=== PATIENT | female | born 1980 | race American Indian/Alaskan Native ===

== ENCOUNTER 2016-10-24 07:59 | Inpatient (IN) | payer MEDICARE ==
[2016-10-24 08:20] VITALS: BMI 42.9
--- NOTE | 2016-10-24 08:24 | ED PDOC ---
Psych Transfer Clearance - Clearance Statement Clearance Statement: Dr Mcneil reviewed vital signs, lab results and transfer papers. Patient clinically stable for psychiatric admission.
[2016-10-24] MEDS ORDERED: DiphenhydrAMINE 50 mg/ml Inj IM PRN (09:19)
[2016-10-24] MEDS ORDERED: Magnesium Hydroxide Susp 30 ml UD PO PRN (09:19)
[2016-10-24] MEDS ORDERED: Alum-Mag Hydrox-Simethicone Susp (30 mL) PO PRN (09:19)
--- NOTE | 2016-10-24 11:43 | CP.PCM.CON ---
History of Present Illness - History of Present Illness History of Present Illness: 36 yo female with history of DM2 but not taking medication since 3 yrs ago admitted at [facility] because of hearing voices. She was transferred to [facility] for admission to psyche unit Review of Systems - Review of Systems All systems: reviewed and no additional remarkable complaints except (aside from those mentioned above, 12 point system review were negative by me) Past Patient History - Tetanus Immunizations Tetanus Immunization: Unknown - Past Medical History & Family History Pertinent Family History: father had DM2 - Past Social History Smoking Status: Never Smoked Alcohol: None Drugs: Denies - CARDIAC Hx Cardiac Disorders: No - PULMONARY Hx Respiratory Disorders: No - NEUROLOGICAL Hx Neurological Disorder: No - HEENT Hx HEENT Problems: No - RENAL Hx Chronic Kidney Disease: No - ENDOCRINE/METABOLIC Hx Diabetes Mellitus Type 2: Yes (since 2001) - HEMATOLOGICAL/ONCOLOGICAL Hx Human Immunodeficiency Virus (HIV): No - INTEGUMENTARY Hx Cellulitis: Yes - MUSCULOSKELETAL/RHEUMATOLOGICAL Hx Musculoskeletal Disorders: No Hx Falls: No - GASTROINTESTINAL Hx Gastrointestinal Disorders: No - GENITOURINARY/GYNECOLOGICAL Hx Genitourinary Disorders: No - PSYCHIATRIC Hx Anxiety: Yes Hx Schizophrenia: Yes ([id number]) Hx Substance Use: No - SURGICAL HISTORY Hx Surgeries: No Other/Comment: wisdom teeth extracted - ANESTHESIA Hx Anesthesia: Yes Hx Anesthesia Reactions: No Meds Allergies/Adverse Reactions: Allergies Allergy/AdvReac Type Severity Reaction Status Date / Time shellfish derived Allergy Verified 10/23/16 21:35 FRUITY FLAVOR Allergy Intermediate SWELLING Uncoded 02/24/15 12:40 lobster Allergy Uncoded 03/16/15 16:32 - Medications Medications: Current Medications Acetaminophen (Tylenol 325mg Tab) 650 mg PO Q4 PRN PRN Reason: pain Al Hydrox/Mg Hydrox/Simethicone (Maalox Plus 30 Ml) 30 ml PO Q4 PRN PRN Reason: Dyspepsia Diphenhydramine HCl (Benadryl) 50 mg IM Q6 PRN PRN Reason: Extrapyramidal S/S Unable PO Diphenhydramine HCl (Benadryl) 50 mg PO Q6 PRN PRN Reason: Extrapyramidal Symptoms Haloperidol (Haldol) 5 mg PO Q4 PRN PRN Reason: Agitation Haloperidol Lactate (Haldol) 5 mg IM Q4 PRN PRN Reason: Agitation, Unable to Take PO Insulin Human Lispro (Humalog) 0 units SC ACHS VELIA PRN Reason: Protocol Lorazepam (Ativan) 2 mg IM Q4 PRN PRN Reason: Anxiety/Agitation,Unable PO Lorazepam (Ativan) 2 mg PO Q4 PRN PRN Reason: Anxiety/Agitation Magnesium Hydroxide (Milk Of Magnesia) 30 ml PO HS PRN PRN Reason: Constipation Metformin HCl (Glucophage) 1,000 mg PO BID VELIA Physical Exam - Constitutional Appears: No Acute Distress - Head Exam Head Exam: ATRAUMATIC - Eye Exam Eye Exam: absent: Scleral icterus - ENT Exam ENT Exam: Mucous Membranes Moist - Neck Exam Neck exam: Negative for: Meningismus - Respiratory Exam Respiratory Exam: absent: Rhonchi, Wheezes, Respiratory Distress - Cardiovascular Exam Cardiovascular Exam: REGULAR RHYTHM, +S1, +S2 - GI/Abdominal Exam GI & Abdominal Exam: Soft. absent: Tenderness - Rectal Exam Rectal Exam: Deferred - Extremities Exam Extremities exam: Negative for: pedal edema - Back Exam Back exam: NORMAL INSPECTION - Neurological Exam Neurological exam: Alert, Oriented x3 - Psychiatric Exam Psychiatric exam: Normal Affect - Skin Skin Exam: Dry, Intact Results - Vital Signs Recent Vital Signs: Last Vital Signs Temp 98 F 10/24/16 10:00 Pulse 84 10/24/16 10:00 Resp 18 10/24/16 10:00 BP 181/94 H 10/24/16 10:00 Pulse Ox 98 10/24/16 08:21 - Labs Labs: Laboratory Results - last 24 hr 10/24/16 10/24/16 08:51 10:54 POC Glucose (mg/dL) 273 H 327 H Assessment & Plan (1) Auditory hallucination Status: Acute Comment: psyche is managing (2) DM2 (diabetes mellitus, type 2) Status: Acute Comment: accucheh ACHS with Lispro coverage. Metformin 1000mg PO BID. HgA1C (3) HTN (hypertension) Status: Acute Comment: BP slightly elevated. Lisinopril 10mg PO daily. monitor BP
--- NOTE | 2016-10-24 11:56 | PCM.PSYCH ---
Initial Psychiatric Evaluation - Initial Psychiatric Evaluation Type of Admission: Voluntary Legal Status: Capacity Chief Complaint (in patient's own words): "I'm hearing voices" Patient's Reaction to Hospitalization: 36 year old single AA female self referred to ED for somatic complaints and anxiety. Pt further reports she has been hearing voices for the past 3-4 years while being med non-compliant. Pt arrived with a blood glucose level of 495 non complaint with her medical and psychiatric meds. Pt reports she had moved to [place] from [place] 3-4 years ago and had stopped following up with her psychiatric care and stopped taking her psychiatric meds: risperdal and abilify. Pt reports the voices call her "stupid". Pt reports her sleep and appetite are normal and unchanged. Pt denies SI/HI. PMHx: DM, HTN PPHX: Pt states she was dx with schizophrenia in 1995. Pt reports [address] in [facility] with last admission in 2013. Pt has been non-compliant with outpt tx and meds risperdal and abilify for 3-4 years since moving to [place] from [place]. SHx: Unemployed, graduated high school. Lives alone. Denies drug, etoh, cig use. Pt reports in 2011 she was arrested due to stealing money from [employer] FHx: No known family h/o mental illness Current Medications: Active Medications Generic Name Dose Route Start Last Admin Trade Name Freq PRN Reason Stop Dose Admin Acetaminophen 650 mg 10/24/16 09:19 Tylenol 325mg Tab PO Q4 PRN pain Al Hydrox/Mg Hydrox/Simethicone 30 ml 10/24/16 09:19 Maalox Plus 30 Ml PO Q4 PRN Dyspepsia Diphenhydramine HCl 50 mg 10/24/16 09:19 Benadryl IM Q6 PRN Extrapyramidal S/S Unable PO Diphenhydramine HCl 50 mg 10/24/16 09:19 Benadryl PO Q6 PRN Extrapyramidal Symptoms Haloperidol 5 mg 10/24/16 09:05 Haldol PO Q4 PRN Agitation Haloperidol Lactate 5 mg 10/24/16 09:05 Haldol IM Q4 PRN Agitation, Unable to Take PO Insulin Human Lispro 0 units 10/24/16 16:30 Humalog SC ACHS VELIA Protocol Lisinopril 10 mg 10/24/16 12:00 Zestril PO DAILY VELIA Lorazepam 2 mg 10/24/16 09:05 Ativan IM Q4 PRN Anxiety/Agitation,Unable PO Lorazepam 2 mg 10/24/16 09:05 Ativan PO Q4 PRN Anxiety/Agitation Magnesium Hydroxide 30 ml 10/24/16 09:19 Milk Of Magnesia PO HS PRN Constipation Metformin HCl 1,000 mg 10/24/16 17:00 Glucophage PO BID [facility] Past Psychiatric History - Past Psychiatric History Previous Treatment History: Inpatient Pertinent Medical Hx (Current Medical&Sleep Prob, Allergies): Allergies Allergy/AdvReac Type Severity Reaction Status Date / Time shellfish derived Allergy Verified 10/23/16 21:35 FRUITY FLAVOR Allergy Intermediate SWELLING Uncoded 02/24/15 12:40 lobster Allergy Uncoded 03/16/15 16:32 GlipiZIDE [Glucotrol] 10 mg PO ACBD #0 tab 03/13/15 Lactobacillus Acidophilus [Bacid Acidophilus] 1 cap PO BID #0 cap 03/13/15 MetFORMIN [glucoPHAGE] 1,000 mg PO BID #0 tab 03/13/15 Review of Systems - Psychiatric Psychiatric: As Per HPI, Anxiety, Auditory Hallucinations Mental Status Examination - Personal Presentation Personal Presentation: Looks stated age, Obese - Affect Affect: Broad - Motor Activity Motor Activity: Calm - Reliability in Providing Information Reliability in Providing Information: Fair - Speech Speech: Coherent - Mood Mood: Anxious - Formal Thought Process Formal Thought Process: Hallucinations - Hallucinations/Delusions Hallucinations: Auditory - Obsessions/Compulsions Obsessions: No Compulsions: No - Cognitive Functions Orientation: Person, Place, Situation, Time Sensorium: Alert Attention/Concentration: Attentive Estimate of Intelligence: Average Judgement: Intact, as evidence by: Insight regarding need for hospitalization Memory: Recent intact, as evidence by: Ability to recall events of the day, Remote intact, as evidenced by: Abilit to recall sig. life events, Remote intact , as evidenced by: Ability to recall historical events - Risk Risk: Diminished functioning - Strength & Assets Inventory Strength & Assets Inventory: Cooperative - Limitations Limitations: Living alone DSM 5 DX - DSM 5 DSM 5 Diagnosis: Schizophrenia - Recommended/Plan of Treatment Treatment Recommendations and Plan of Treatment: Schizophrenia -Admit to psychiatry -Start Risperdal 1 mg PO Daily -Medicine consult appreciated -Individual and group therapy -Disposition planning Projected ELOS: 5-7 days Prognosis: Fair Discharge Plan and Discharge Criteria: Discharge when psychiatrically stable - Smoking Cessation Smoking Cessation Initiated: No Reason for not providing: Not indicated
[2016-10-24] MEDS: Insulin Lispro (humaLOG) 100 Units/ml Inj SC SCH ×2 (16:43→21:41)
[2016-10-25 05:50] VITALS: O2SAT 99
[2016-10-25 06:21] LABS: BASO % 0.8 % (0.0-2.0); EOS # 0.1 K/uL (0.0-0.7); EOS % 1.7 % (0.0-4.0); HEMATOCRIT 41.7 % (34.0-47.0); LYMPH # 2.7 K/uL (1.0-4.3); LYMPH % 58.1 % (20.0-40.0); MEAN CELL VOLUME 85.2 fl (81.0-99.0); MEAN CORPUSCULAR HEMOGLOBIN 27.9 pg (27.0-31.0); MEAN CORPUSCULAR HGB CONC 32.8 g/dL (33.0-37.0); MEAN PLATELET VOLUME 9.5 fl (7.2-11.7); MONO # 0.3 K/uL (0.0-0.8); MONO % 6.7 % (0.0-10.0); NEUT # 1.5 K/uL (1.8-7.0); NEUT % 32.7 % (50.0-75.0); NRBC % 0.1 % (0.0-0.0); RED CELL DISTRIBUTION WIDTH 13.2 % (11.5-14.5); WHITE BLOOD COUNT 4.6 K/uL (4.8-10.8)
[2016-10-25 06:47] LABS: T4 9.77 ug/dl (5.5-11.0)
[2016-10-25 06:48] LABS: ALB/GLOB RATIO 0.9 (1.0-2.1); ALKALINE PHOSPHATASE 88 U/L (38-126); ALT/SGPT 26 U/L (9-52); AST/SGOT 17 U/L (14-36); BILIRUBIN,TOTAL 0.5 mg/dl (0.2-1.3); BLOOD UREA NITROGEN 10 mg/dl (7-17); CARBON DIOXIDE 24 mmol/L (22-30); CHLORIDE 105 mmol/L (98-107); CHOLESTEROL 236 mg/dL (0-199); GFR AFRICAN-AMERICAN > 60; GLUCOSE,RANDOM 221 mg/dL (65-105); POTASSIUM 3.8 MMOL/L (3.6-5.0); SODIUM 136 mmol/l (132-148)
[2016-10-25 07:00] LABS: THYROID STIMULATING HORMONE 2.32 mIU/ML (0.46-4.68)
--- NOTE | 2016-10-25 08:01 | PCM.PYCHPN ---
Psychiatric Progress Note - Psychiatric Progress Note Patient seen today, length of contact: Patient evaluated, case discussed with team, chart reviewed Patient Chief Complaint: "I'm hearing voices" Problems Identified/Issues Discussed: Patient continues to report auditory hallucinations but states that they are diminished. The voices call her stupid. No command auditory hallucinations. She is calm and pleasant on conversation. She denies current feelings of depression or anxiety. She is agreeable to continued titration of Risperdal. r /b/se reviewed. Medication Change: Yes (Increase Risperdal to 2 mg PO HS) Medical Record Reviewed: Yes Consults ordered or reviewed: Medicine consult Mental Status Examination - Cognitive Function Orientation: Person, Place, Situation, Time Memory: Intact Attention: WNL Concentration: WNL Association: WNL Fund of Knowledge: [facility] Decription of patient's judgement and insights: Fair I/J - Mood Mood: Neutral - Affect Affect: Broad - Speech Speech: Appropriate - Formal Thought Process Formal Thought Process: Hallucinations Psychotic Thoughts and Behaviors: +AH - Suicidal Ideation Suicidal Ideation: No - Homicidal Ideation Homicidal Ideation: No Goal/Treatment Plan - Goal/Treatment Plan Need for Continued Stay: Remain at risks for inpatient hospitalization, Discharge may exacerbated symptoms Progress Toward Problem(s) and Goals/Treatment Plan: 36 yo female w/ h/o schizophrenia presents acutely decompensated and psychotic in the setting of medication non-compliance. She continues to reports auditory hallucinations. She would benefit from continued hospitalization for treatment and safety. -Increase Risperdal to 2 mg PO HS -Medicine consult appreciated -Individual and group therapy -Disposition planning Estimated Date of D/C: 10/28/16
[2016-10-25] MEDS: Insulin Lispro (humaLOG) 100 Units/ml Inj SC SCH ×4 (08:22→21:21)
[2016-10-26] MEDS: Insulin Lispro (humaLOG) 100 Units/ml Inj SC SCH ×4 (08:33→21:10)
--- NOTE | 2016-10-26 08:59 | PCM.PYCHPN ---
Psychiatric Progress Note - Psychiatric Progress Note Patient seen today, length of contact: Patient evaluated, case discussed with team, chart reviewed Patient Chief Complaint: "I'm hearing voices" Problems Identified/Issues Discussed: Patient is goal oriented and discussed her desires to get a job following discharge. Patient continues to report auditory hallucinations but states that they are diminished. No command auditory hallucinations. She is calm and pleasant on conversation. She denies current feelings of depression or anxiety. She is agreeable to continued titration of Risperdal. r/b/se reviewed. Medication Change: Yes (Increase Risperdal to 3 mg PO Daily) Medical Record Reviewed: Yes Mental Status Examination - Cognitive Function Orientation: Person, Place, Situation, Time Memory: Intact Attention: WNL Concentration: WNL Association: WNL Fund of Knowledge: [facility] Decription of patient's judgement and insights: Fair I/J - Mood Mood: Neutral - Affect Affect: Broad - Speech Speech: Appropriate - Formal Thought Process Formal Thought Process: Hallucinations Psychotic Thoughts and Behaviors: +AH - Suicidal Ideation Suicidal Ideation: No - Homicidal Ideation Homicidal Ideation: No Goal/Treatment Plan - Goal/Treatment Plan Need for Continued Stay: Remain at risks for inpatient hospitalization, Discharge may exacerbated symptoms Progress Toward Problem(s) and Goals/Treatment Plan: 36 yo female w/ h/o schizophrenia presents acutely decompensated and psychotic in the setting of medication non-compliance. She continues to report auditory hallucinations. She would benefit from continued hospitalization for treatment and safety. -Increase Risperdal to 3 mg PO Daily -Medicine consult appreciated -Individual and group therapy -Disposition planning Estimated Date of D/C: 10/28/16
[2016-10-27] MEDS: Insulin Lispro (humaLOG) 100 Units/ml Inj SC SCH ×4 (08:57→21:04)
--- NOTE | 2016-10-27 09:17 | PCM.PYCHPN ---
Psychiatric Progress Note - Psychiatric Progress Note Patient seen today, length of contact: Patient evaluated, case discussed with team, chart reviewed, 37 Patient Chief Complaint: "I'm feeling better" Problems Identified/Issues Discussed: Patient is goal oriented and discussed her post discharge plans. She denies auditory hallucinations and reports that her thoughts are clearer. She is also less disorganized on conversation. We discussed the importance of outpatient follow-up. She denies current feelings of depression or anxiety. She is agreeable to continued titration of Risperdal. r/b/se reviewed. Medication Change: Yes (Increase Risperdal to 2 mg Q12) Medical Record Reviewed: Yes Mental Status Examination - Cognitive Function Orientation: Person, Place, Situation, Time Memory: Intact Attention: WNL Concentration: WNL Association: WNL Fund of Knowledge: WN Decription of patient's judgement and insights: Fair I/J - Mood Mood: Neutral - Affect Affect: Broad - Speech Speech: Appropriate - Formal Thought Process Formal Thought Process: No Impairment Psychotic Thoughts and Behaviors: Denies AH - Suicidal Ideation Suicidal Ideation: No - Homicidal Ideation Homicidal Ideation: No Goal/Treatment Plan - Goal/Treatment Plan Need for Continued Stay: Remain at risks for inpatient hospitalization, Discharge may exacerbated symptoms Progress Toward Problem(s) and Goals/Treatment Plan: 36 yo female w/ h/o schizophrenia presents acutely decompensated and psychotic in the setting of medication non-compliance. Patient is improving clinically and approaching her baseline psychiatrically. -Increase Risperdal to 2 mg PO Q12 -Medicine consult appreciated -Individual and group therapy -Discharge tomorrow if the patient continues to improve clinically Estimated Date of D/C: 10/28/16 - Smoking Cessation Smoking Cessation Initiated: No Reason for not providing: Not indicated
[2016-10-28 06:08] VITALS: BP 113/66; PULSE 81; RESP 18; TEMP 97.1
--- NOTE | 2016-10-28 08:02 | PCM.PYCHDC ---
Mental Status Examination - Mental Status Examination Orientation: Person, Place, Situation, Time Memory: Intact Mood: Neutral Affect: Broad Speech: Appropriate Attention: WNL Concentration: WNL Association: WNL Fund of Knowledge: WNL Formal Thought Process: No Impairment Description of patient's judgement and insight: Fair I/J Psychotic Thoughts and Behaviors: Denies AH Suicidal Ideation: No Current Homicidal Ideation?: No Discharge Summary - Discharge Note Reason for Hospitalization: 36 year old single AA female self referred to ED for somatic complaints and anxiety. Pt further reports she has been hearing voices for the past 3-4 years while being med non-compliant. Pt arrived with a blood glucose level of 495 non complaint with her medical and psychiatric meds. Pt reports she had moved to [place] from [place] 3-4 years ago and had stopped following up with her psychiatric care and stopped taking her psychiatric meds: risperdal and abilify. Pt reports the voices call her "stupid". Pt reports her sleep and appetite are normal and unchanged. Pt denies SI/HI. PMHx: DM, HTN PPHX: Pt states she was dx with schizophrenia in 1995. Pt reports 8 previous admission at hospital in [facility] with last admission in 2013. Pt has been non-compliant with outpt tx and meds risperdal and abilify for 3-4 years since moving to [place] from [place]. SHx: Unemployed, graduated high school. Lives alone. Denies drug, etoh, cig use. Pt reports in 2011 she was arrested due to stealing money from tip jar at [facility] FHx: No known family h/o mental illness Laboratory Data: Abnormal Lab Results 10/27/16 10/27/16 10/27/16 10:55 15:34 20:03 POC Glucose (mg/dL) 390 H 223 H 251 H 10/28/16 05:49 POC Glucose (mg/dL) 211 H Consultations:: List each consultation separately and include: 1. Reason for request. 2. Findings. 3. Follow-up Consultations: Medicine consult Summary of Hospital Course include:: 1. Description of specific treatment plan utilized for patients during their course of treatmen. 2. Summarize the time- course for resolution of acute symptoms and/or regressed behaviors. 3. Describe issues identified and worked on during hospitalization. 4. Describe medication utilized. 5. Describe medical problems identified and treated. 6. Reassessment of suicide risk Summary of Hospital Course: Patient was admitted to the psychiatry unit. She was stabilized on Risperdal. She no longer reports auditory hallucinations and has improved organization of speech and thoughts. She is psychiatrically stable for discharge. We discussed the importance of outpatient follow-up. - Final Diagnosis (DSM 5) Condition upon Discharge: STABLE DSM 5: Schizophrenia Disposition: Transfer [facility] Follow-up Treatment Plan: 36 yo female w/ h/o schizophrenia presented acutely decompensated and psychotic in the setting of medication non-compliance, now improved clinically and psychiatrically stable for discharge. -Continue Risperdal 2 mg PO Q12 -Medicine consult appreciated -Individual and group therapy -Discharge today w/ outpatient follow-up Prescriptions/Medication Reconciliation: Lisinopril [Zestril] 10 mg PO DAILY #30 tab MetFORMIN [glucoPHAGE] 1,000 mg PO BID #60 tab risperiDONE [RisperDAL Tab] 2 mg PO Q12 #60 tab - Smoking Cessation Smoking Cessation Medication prescribed: No Reason for not providing: Not indicated - Antipsychotic Medications Pt discharged on 2 or more routine antipsychotic medications: No
[2016-10-28] MEDS: Insulin Lispro (humaLOG) 100 Units/ml Inj SC SCH ×2 (08:36→12:33)
== END 2016-10-28 14:45 | disposition home or self-care (01) | DRG 885 ==
LOC: H.ER 07:59 → H.STEP 08:22
PROVIDERS: ADMIT Psychiatry & Neurology Psychiatry; ATTEND Psychiatry & Neurology Psychiatry
PROC: GZHZZZZ Group Psychotherapy (ICD-10-PCS; principal; 2016-10-24)
DX: F23 Brief psychotic disorder (principal); E11.9 Type 2 diabetes mellitus without complications; I10 Essential (primary) hypertension; Z91.14 Patient's other noncompliance with medication regimen; Z91.013 Allergy to seafood